=== PATIENT | female | born 1990 | race Caucasian/White ===

== ENCOUNTER 2016-12-05 06:00 | Inpatient (IN) | payer MEDICAID ==
[~2016-12-05] VITALS: Ht 175.3 cm; Wt 96.2 kg
[2016-12-05] MEDS ORDERED: PHENYLEPHRINE 10 MG/ML VIAL IV ONE (07:47)
[2016-12-05] MEDS ORDERED: CHLOROPROCAINE 3% VIAL EPIDURAL ONE (07:47)
[2016-12-05] MEDS ORDERED: LIDOCAINE 1% BUFFERED 1 ML SYR INTRADERM PRN (10:30)
[2016-12-05] MEDS ORDERED: TERBUTALINE 1 MG/ML VIAL SUBQ PRN (10:30)
[2016-12-05] MEDS ORDERED: CEFAZOLIN (LD/OB) 100 ML IV PRN (10:30)
[2016-12-05] MEDS ORDERED: ONDANSETRON 4 MG VIAL IV PUSH PRN (10:30)
[2016-12-05] MEDS ORDERED: LIDOCAINE 1% 30 ML PF INFILTRATE ONE (10:30)
[2016-12-05] MEDS ORDERED: METOCLOPRAMIDE 10 MG/2 ML VIAL IV PUSH PRN (10:30)
[2016-12-05] MEDS ORDERED: FAMOTIDINE 20 MG TAB PO PRN (10:30)
[2016-12-05] MEDS ORDERED: OXYTOCIN 15 UNITS/250 ML NS 250 ML IV SCH ×2 (10:30)
[2016-12-05] MEDS ORDERED: FAMOTIDINE 20 MG INJ IV PRN (10:30)
[2016-12-05 11:28] VITALS: Ht 175.3 cm; Wt 96.2 kg
[2016-12-05] MEDS: LACT RINGERS 1,000 ML IV SCH ×3 (13:00→20:33)
[2016-12-05] MEDS: BUTORPHANOL 2 MG/ML VIAL IM PRN ×2 (16:30→20:32)
[2016-12-05] MEDS: BUTORPHANOL 2 MG/ML VIAL IV PRN ×2 (16:30→20:33)
[2016-12-05] MEDS ORDERED: PROMETHAZINE 25 MG/ML VIAL IV PRN (20:20)
[2016-12-05] MEDS ORDERED: PROMETHAZINE 25 MG/ML VIAL ONE (20:24)
[2016-12-05] MEDS ORDERED: ROPIV/FENT 0.2%-2MCG/ML 100 ML EPIDURAL ONE (22:27)
[2016-12-05] MEDS ORDERED: FENTANYL 100 MCG/2 ML AMP ONE (22:27)
[2016-12-05] MEDS ORDERED: FENTANYL 100 MCG/2 ML AMP EPIDURAL ONE (23:15)
[2016-12-05] MEDS ORDERED: LACT RINGERS 500 ML IV PRN (23:15)
[2016-12-05] MEDS ORDERED: **ONLY ANESTEHSIA MAY ORDER OPIATES WHILE ON EPIDURAL XX SCH (23:15)
[2016-12-05] MEDS ORDERED: ROPIV/FENT 0.2%-2MCG/ML 100 ML EPIDURAL SCH (23:15)
[2016-12-05] MEDS ORDERED: LACT RINGERS 500 ML IV ONE (23:15)
[2016-12-05] MEDS ORDERED: SODIUM CHLORIDE 0.9% 500 ML IV PRN (23:15)
[2016-12-06] VITALS (18 sets, daily range): BP systolic 102–131; RESP 11–24; TEMP 97.5–98.6
[2016-12-06] MEDS ORDERED: BUTORPHANOL 1 MG/ML VIAL IV PRN ×2 (05:00→09:40)
[2016-12-06] MEDS ORDERED: MORPHINE 2 MG/ML SYR IV PRN ×4 (05:00→11:20)
[2016-12-06] MEDS ORDERED: OXYCODONE 5 MG TAB PO PRN (05:00)
[2016-12-06] MEDS ORDERED: MORPHINE 4 MG/ML SYR IV PRN ×4 (05:00→11:20)
[2016-12-06] MEDS ORDERED: NALOXONE 0.4 MG/ML AMP IV PRN (05:00)
[2016-12-06] MEDS ORDERED: PROMETHAZINE 25 MG/ML VIAL IV PRN (05:00)
[2016-12-06] MEDS ORDERED: DILAUDID 1 MG/ML AMP IV PRN ×2 (05:00→09:40)
[2016-12-06] MEDS ORDERED: DIPHENHYDRAMINE 50 MG/ML VIAL IV PRN ×2 (05:00→09:40)
[2016-12-06] MEDS ORDERED: ONDANSETRON 4 MG VIAL IV PRN ×5 (05:00→09:40)
[2016-12-06] MEDS ORDERED: SALINE FLUSH 10 ML FLUSH PRN (05:00)
[2016-12-06] MEDS ORDERED: MEPERIDINE 25 MG/ML IV PRN ×2 (05:00→09:40)
[2016-12-06] MEDS ORDERED: OXYTOCIN 15 UNITS/250 ML NS 250 ML IV SCH (05:50)
[2016-12-06] MEDS ORDERED: MAG HYDROX 30 ML UDC PO PRN (05:50)
[2016-12-06] MEDS ORDERED: BISACODYL 10 MG SUPP RECTAL PRN (05:50)
[2016-12-06] MEDS ORDERED: NICOTINE 14 MG/24 HR TDSY TRANSDERM PRN (05:50)
[2016-12-06] MEDS ORDERED: TDaP 0.5 ML VIAL IM.VACC ONE (05:50)
[2016-12-06] MEDS ORDERED: DEXTROSE 5% LACT RINGERS 1,000 ML IV SCH (05:50)
[2016-12-06] MEDS ORDERED: MEASLES,MUMPS,RUBELLA VAC SUBQ.VACC ONE (05:50)
[2016-12-06] MEDS ORDERED: SODIUM CHLORIDE 0.9% FLUSH BAG 500 ML IV SCH (06:00)
[2016-12-06] MEDS ORDERED: DILAUDID 1 MG/ML AMP ONE (06:19)
[2016-12-06] MEDS: KETOROLAC 30 MG/ML VIAL IV SCH ×4 (06:24→23:32)
[2016-12-06] MEDS ORDERED: SALINE FLUSH 10 ML FLUSH SCH (08:00)
[2016-12-06] MEDS ORDERED: TERBUTALINE 1 MG/ML VIAL ONE (08:30)
[2016-12-06] MEDS: DOCUSATE SOD 100 MG CAP PO SCH (09:00)
[2016-12-06] MEDS ORDERED: BUTORPHANOL 2 MG/ML VIAL IM PRN (09:40)
[2016-12-06] MEDS ORDERED: BUTORPHANOL 2 MG/ML VIAL IV PRN (09:40)
[2016-12-07 01:45] VITALS: BP_SYST 124; RESP 16; TEMP 97.7
[2016-12-07 05:34] VITALS: BP_SYST 120; RESP 18; TEMP 98.2
[2016-12-07] MEDS: DILAUDID 2 MG TAB PO PRN ×3 (09:03→21:18)
[2016-12-07] MEDS: FERROUS SULF 325 MG TAB PO SCH ×2 (09:03→21:18)
[2016-12-07] MEDS: DOCUSATE SOD 100 MG CAP PO SCH (09:03)
[2016-12-07 09:40] VITALS: BP_SYST 123; TEMP 98
[2016-12-07 09:41] VITALS: RESP 24
[2016-12-07] MEDS: Ibuprofen 600 MG TAB PO SCH ×3 (11:57→23:39)
[2016-12-07 17:48] VITALS: BP_SYST 119; TEMP 98.4
[2016-12-07 17:49] VITALS: RESP 24
[2016-12-08 05:31] VITALS: BP_SYST 129; RESP 16; TEMP 97.5
[2016-12-08] MEDS: Ibuprofen 600 MG TAB PO SCH ×2 (05:50→11:35)
[2016-12-08] MEDS: OXYCODONE/APAP 5/325 TAB PO PRN ×2 (07:56→11:34)
[2016-12-08] MEDS: DOCUSATE SOD 100 MG CAP PO SCH (08:28)
[2016-12-08] MEDS: FERROUS SULF 325 MG TAB PO SCH (08:28)
[2016-12-08 09:36] VITALS: BP_SYST 124; TEMP 97.6
[2016-12-08 11:00] VITALS: BP_SYST 124; RESP 16; TEMP 97.6
== END 2016-12-08 13:12 | disposition home or self-care (01) | DRG 766 ==
LOC: LD 10:10 → OB 12-06 08:30
PROVIDERS: ADMIT Obstetrics & Gynecology; ATTEND Obstetrics & Gynecology
PROC: 10907ZC Drainage of Amniotic Fluid, Therapeutic from Products of Conception, Via Natural or Artificial Opening (ICD-10-PCS; 2016-12-05)
PROC: 3E033VJ Introduction of Other Hormone into Peripheral Vein, Percutaneous Approach (ICD-10-PCS; 2016-12-05)
PROC: 10D00Z1 Extraction of Products of Conception, Low, Open Approach (ICD-10-PCS; principal; 2016-12-06)
PROC: 0UB70ZZ Excision of Bilateral Fallopian Tubes, Open Approach (ICD-10-PCS; 2016-12-06)
CPT/HCPCS: 80053; 82803; 82947; 84439; 84443; 85014; 85018; 85025; 88302